=== PATIENT | male | born 1970 | race Caucasian/White ===

== ENCOUNTER 2023-06-06 04:05 | Observation (INO) ==
[2023-06-06] MEDS ORDERED: Pantoprazole 80 mg in NS BAG 80 MG/250 ML BAG IV ONE (04:08)
[2023-06-06] MEDS ORDERED: NS 0.9% 1000 ml BAG 1,000 ML IV ONE (04:09)
[2023-06-06 04:36] LABS: ABS Lymphocytes 1.6 10^3/uL (1.0-4.8); ABS Monocytes 0.8 10^3/uL (0.0-1.1); ABS Neutrophils 10.1 10^3/uL (1.5-7.6); Eosinophil % 0.3 %; Hematocrit 33.4 % (38-53); Hemoglobin 11.3 g/dL (13.2-16.3); Lymphocyte % 12.8 %; Mean Corpuscular Hemoglobin 30.9 pg (27-33); Mean Corpuscular Hgb Conc 33.8 g/dL (31-36); Mean Corpuscular Volume 91.2 fL (80-97); Mean Platelet Volume 8.5 fL (7.5-11.2); Platelet Count 210 10^3/uL (150-450); Red Blood Count 3.66 10^6/uL (4.06-5.63); White Blood Count 12.6 10^3/uL (3.6-10.2)
[2023-06-06 04:57] LABS: Albumin 3.5 g/dL (3.2-5.2); Albumin/Globulin Ratio 1.5 (1-3); Calcium 7.9 mg/dL (8.6-10.3); Creatinine, Serum 1.16 mg/dL (0.67-1.17); Globulin 2.3 g/dL (2-4); Potassium 4.6 mmol/L (3.5-5.0); Total Bilirubin 0.4 mg/dL (0.2-1.0); Total Protein 5.8 g/dL (6.4-8.9); eGFR CKD-EPI 76.3 (>60)
[2023-06-06 05:09] LABS: INR 1.09 (0.83-1.13)
[2023-06-06] MEDS ORDERED: Lactated Ringers 1000 ml BAG 1,000 ML IV ONE (05:44)
[2023-06-06] MEDS ORDERED: Iohexol 350 (CONTRAST) 500 ML MDV IV ONE (06:16)
[2023-06-06] MEDS: Lactated Ringers 1000 ml BAG 1,000 ML IV SCH ×3 (11:32→20:08)
[2023-06-06] MEDS ORDERED: fentaNYL 100 mcg/2 ml 50 MCG/ML VIAL ONE ×2 (17:54→17:56)
[2023-06-06] MEDS ORDERED: Midazolam 10 mg/10 ml VIAL 1 mg/ml 10 ml VIAL (10 mg) ONE (17:54)
[2023-06-06] MEDS ORDERED: Pantoprazole VIAL 40 MG VIAL IV SCH (18:00)
[2023-06-06] MEDS ORDERED: Polyethylene Glycol 3350 17 GM PACKET PO SCH (19:00)
[2023-06-06] MEDS: Pantoprazole VIAL 40 MG VIAL IV SCH (20:06)
[2023-06-06] MEDS: Polyethylene Glycol 3350 17 GM PACKET PO SCH ×2 (20:10→22:37)
[2023-06-07] MEDS: Polyethylene Glycol 3350 17 GM PACKET PO SCH (02:01)
[2023-06-07 06:00] LABS: ABS Basophils 0.1 10^3/uL (0.0-0.1); ABS Eosinophils 0.2 10^3/uL (0.0-0.5); ABS Lymphocytes 2.2 10^3/uL (1.0-4.8); ABS Monocytes 0.5 10^3/uL (0.0-1.1); Eosinophil % 3.5 %; Hematocrit 28.6 % (38-53); Lymphocyte % 36.6 %; Mean Corpuscular Hemoglobin 31.3 pg (27-33); Mean Corpuscular Hgb Conc 34.8 g/dL (31-36); Mean Corpuscular Volume 89.8 fL (80-97); Mean Platelet Volume 8.4 fL (7.5-11.2); Nucleated Red Blood Cells % 0.1 %/100WBC (0.0-0.8); Platelet Count 189 10^3/uL (150-450); Red Blood Count 3.18 10^6/uL (4.06-5.63); Red Cell Distribution Width 13.1 % (12-17)
[2023-06-07 06:22] LABS: Calcium 8.6 mg/dL (8.6-10.3); Creatinine, Serum 1.01 mg/dL (0.67-1.17); Magnesium 1.7 mg/dL (1.9-2.7); Potassium 3.6 mmol/L (3.5-5.0)
[2023-06-07] MEDS ORDERED: PEG 3000 GI LAVAGE 1 GALLON PO ONE (07:00)
[2023-06-07] MEDS ORDERED: Magnesium Sulfate 2 gm BAG 2 GM/50 ML BAG IVPB ONE (08:15)
[2023-06-07] MEDS: Pantoprazole VIAL 40 MG VIAL IV SCH (08:23)
[2023-06-07 16:23] LABS: Hematocrit 30.7 % (38-53); Hemoglobin 10.5 g/dL (13.2-16.3)
[2023-06-07 16:42] LABS: Calcium 8.9 mg/dL (8.6-10.3); Creatinine, Serum 1.06 mg/dL (0.67-1.17); Potassium 3.7 mmol/L (3.5-5.0)
[2023-06-07] MEDS ORDERED: fentaNYL 100 mcg/2 ml 50 MCG/ML VIAL ONE (17:03)
[2023-06-07] MEDS ORDERED: Midazolam 10 mg/10 ml VIAL 1 mg/ml 10 ml VIAL (10 mg) ONE (17:03)
[2023-06-07] MEDS ORDERED: Ondansetron 4 mg VIAL 2 MG/ML 2 ml VIAL IV PRN (17:26)
[2023-06-07] MEDS ORDERED: Lactated Ringers 1000 ml BAG 1,000 ML IV ONE (17:26)
[2023-06-07] MEDS ORDERED: Naloxone 0.4 mg VIAL 0.4 mg/ml 1 ml VIAL IV PUSH PRN (17:26)
[2023-06-07] MEDS ORDERED: Flumazenil 0.5 mg/5 ml 0.1 MG/ML 5 ml VIAL IV PRN (17:26)
[2023-06-07] MEDS ORDERED: Lidocaine 2% JELLY 6 ML Topical TOPICAL PRN (17:26)
[2023-06-07] MEDS ORDERED: fentaNYL 100 mcg/2 ml 50 MCG/ML VIAL IV SLOW PU ONE (17:26)
[2023-06-07] MEDS ORDERED: Midazolam 10 mg/10 ml VIAL 1 mg/ml 10 ml VIAL (10 mg) IV SLOW PU ONE (17:26)
[2023-06-08 06:44] LABS: ABS Basophils 0.1 10^3/uL (0.0-0.1); ABS Eosinophils 0.2 10^3/uL (0.0-0.5); ABS Lymphocytes 2.3 10^3/uL (1.0-4.8); ABS Monocytes 0.6 10^3/uL (0.0-1.1); ABS Neutrophils 3.5 10^3/uL (1.5-7.6); Eosinophil % 3.3 %; Hematocrit 29.1 % (38-53); Hemoglobin 10.1 g/dL (13.2-16.3); Lymphocyte % 34.7 %; Mean Corpuscular Hemoglobin 31.4 pg (27-33); Mean Corpuscular Hgb Conc 34.8 g/dL (31-36); Mean Platelet Volume 8.4 fL (7.5-11.2); Nucleated Red Blood Cells % 0.1 %/100WBC (0.0-0.8); Platelet Count 191 10^3/uL (150-450); Red Blood Count 3.23 10^6/uL (4.06-5.63); Red Cell Distribution Width 13.1 % (12-17); White Blood Count 6.7 10^3/uL (3.6-10.2)
[2023-06-08 06:56] LABS: Calcium 8.7 mg/dL (8.6-10.3); Creatinine, Serum 1.11 mg/dL (0.67-1.17); Potassium 3.6 mmol/L (3.5-5.0); eGFR CKD-EPI 80.4 (>60)
[2023-06-08] MEDS ORDERED: Pantoprazole VIAL 40 MG VIAL IV SCH (09:00)
[2023-06-08 09:57] VITALS: BP 122/76
== END 2023-06-08 14:15 ==
LOC: EDHOLD 04:05 → ED 04:05 → SUATTDRO 08:04 → MED 12:51
PROVIDERS: ADMIT Student in an Organized Health Care Education/Training Program; ATTEND Student in an Organized Health Care Education/Training Program